=== PATIENT | male | born 1950 | race Caucasian/White ===

== ENCOUNTER 2024-12-09 09:40 | Day surgery (SDC) | payer MEDICARE, OTHER, SELFPAY ==
[2024-12-09] VITALS (12 sets, daily range): BP systolic 117–170; BP diastolic 57–85; BMI 28.0
[2024-12-09] MEDS: NSS 280 ML IV ×2 (11:06→11:07)
[2024-12-09 13:49] LABS: ACT-LR - POC 294 Seconds (116-155)
--- NOTE | 2024-12-09 17:29 | ITS.CL.CATH ---
[employer] - Catheterization
Cardiac Catheterization
Procedure Report:
LEFT HEART CATHETERIZATION
Date of Procedure: December 09, 2024
Referring: Dr. Anant Morales
PROCEDURES:
1. Left heart catheterization, coronary angiogram.
2. Moderate sedation.
3. Functional physiologic testing with IFR of mid LAD.
4. Functional physiologic testing with IFR of mid left circumflex.
INDICATION: abnormal stress test.
ACCESS: Right radial artery, 6Fr. sheath, under US guidance.
HEMODYNAMICS : (mmHg)
AO (s/d) : 137/72
LVEDP : 14
No significant gradient across the aortic valve to suggest aortic stenosis.
CORONARY FINDINGS
Dominance: Right
Left Main Trunk (LMT): Large caliber vessel that gives rise to the LAD and LCx branches and is free of angiographic disease.
Left Anterior Descending Artery (LAD): Large caliber vessel that gives off 3 major diagonal branches as it courses along the anterior inter-ventricular groove before wrapping around the cardiac apex. Mid LAD had a focal 60% stenosis in mid portion
between small caliber D2 and D3. iFR was negative at 0.95
Left Circumflex Artery (LCx): Large caliber vessel that gives off 2 major obtuse marginal (OM) branches as it courses along the atrio-ventricular (AV) groove. Mid LCX-OM has 50-60% stenosis. iFR negative at 1.0
Right Coronary Artery (RCA): Large caliber dominant vessel that gives rise to the posterior descending artery (RPDA) and postero-lateral ventricular (RPLV) branches distally. Mid RCA has 40-50% stenosis.
HEMODYNAMIC ASSESSMENT OF THE MID LAD/MID LCX WITH A [place] OMNI WIRE: The origin of the LCA was cannulated with a 6 Fr EBU 3.5 guide catheter. Intravenous heparin was administered and the ACT was followed during the procedure. Two hundred
micrograms of intracoronary nitroglycerin was given through the guide catheter. A [place] Omni wire was advanced to the guide catheter tip and normalized just outside the guide catheter. The Omni wire was then carefully manipulated across the
stenosis in the mid LAD with the iFR above the ischemic threshold measuring 0.95. The Omni wire was then pulled back to the guide catheter where the Pd/Pa measured 1.0 confirming no baseline drift in pressure readings. The same wire was then
redirected into LCX-OM and re-normalized just outside the guide catheter. The Omni wire was then carefully manipulated across the stenosis in the mid LCX-OM with the iFR above the ischemic threshold serially measuring 1.0. The Omni wire was then
pulled back to the guide catheter where the Pd/Pa measured 1.0 confirming no baseline drift in pressure readings.
SEDATION: 42 minutes of procedural sedation was utilized. IV Midazolam and IV Fentanyl were administered. An independent medical insurance coding specialist was present to assist with and help manage the patient's level of consciousness and physiologic status.
RADIATION SUMMARY: Fluoro Time (min): 5.9, Dose (mGy): 324.6, DAP (Gy.cm2) : 22.3
Closure Device: There were no immediate intra-procedural complications. The sheath was pulled in the director of cath lab and a vascular-band applied to the right wrist for radial artery hemostasis using the patent hemostasis technique.
CONCLUSIONS
1. Mid LAD had a focal 60% stenosis in mid portion between small caliber D2 and D3. iFR was negative at 0.95.
2. Mid LCX-OM has 50-60% stenosis. iFR negative at 1.0.
3. Mid RCA has 40-50% stenosis.
4. LVEDP 14mmHG.
RECOMMENDATIONS
1. Wean radial band per protocol. Monitor right hand perfusion and for bleeding from the radial site following removal of the vascular-band following trans-radial access.
2. Continue aggressive medical therapy and risk factor modification for secondary CAD prevention.
3. Hydrate with normal saline to mitigate the risk of contrast-induced acute kidney injury.
4. Follow-up with Dr. Anant Morales
Anabela Gonsales MD, [facility], [facility]
Copy to: Dr. Anant Morales
== END 2024-12-09 17:13 | disposition home or self-care (01) ==
LOC: CATH 09:40
PROVIDERS: ATTENDING PHYSICIAN Internal Medicine Interventional Cardiology; FAMILY PHYSICIAN Internal Medicine; OTHER PHYSICIAN Internal Medicine Cardiovascular Disease
DX: I25.10 Atherosclerotic heart disease of native coronary artery without angina pectoris (principal); R94.39 Abnormal result of other cardiovascular function study
CPT/HCPCS: 93799; 85347; 93458; 99152; 99153; C1769; C1894; Q9967